=== PATIENT | female | born 2000 | race Caucasian/White ===

== ENCOUNTER 2022-03-22 23:49 | Emergency (ER) | payer OTHER ==
[~2022-03-22] VITALS: Ht 167.6 cm; Wt 68.0 kg
--- NOTE | 2022-03-22 23:50 | NUR ---
PT ANGI CHP TAKEN TO CHAIR A
[2022-03-22 23:52] VITALS: BP 125/88
--- NOTE | 2022-03-22 23:53 | NUR ---
ALPA MALDONADO [phone] WANTS UPDATE
--- NOTE | 2022-03-23 00:09 | NUR ---
PATIENT BIB [facility] [employer]. PATIENT EXAMINED BY . PATIENT MEDICALLY CLEARED AND RELEASED IN CUSTODY IN STABLE CONDITION. ORIGINAL PRE-BOOK FORM GIVEN TO OFFICER JOSE, #[id number].
== END 2022-03-23 00:09 ==
LOC: MED 23:49
DX: Z02.89 Encounter for other administrative examinations (principal)
CPT/HCPCS: 99283